=== PATIENT | female | born 1990 | race Two or more races ===

== ENCOUNTER 2019-03-29 17:53 | Emergency (ER) | payer OTHER ==
[~2019-03-29] VITALS: Ht 167.6 cm; Wt 84.1 kg
[2019-03-29] MEDS ORDERED: DIAZEPAM 5 MG TABLET PO ONE (18:45)
[2019-03-29] MEDS ORDERED: HYDROCODONE/ACETAMINOPHEN 5-325 MG TABLET PO ONE (18:45)
[2019-03-29] MEDS ORDERED: DEXAMETHASONE SOD PHOS 4 MG/ML 5 ML VIAL IM ONE (18:45)
[2019-03-29] MEDS ORDERED: KETOROLAC TROMETHAMINE 30 MG/ML VIAL IM ONE (18:45)
[2019-03-29 20:36] VITALS: BP 130/88
== END 2019-03-29 20:43 | disposition home or self-care (01) ==
LOC: EMS 17:56
DX: S39.012A Strain of muscle, fascia and tendon of lower back, initial encounter (principal); X58.XXXA Exposure to other specified factors, initial encounter; Y93.89 Activity, other specified; Y92.89 Other specified places as the place of occurrence of the external cause; Y99.8 Other external cause status
CPT/HCPCS: 72220; 81025; 96372; 99283; J1100; J1885